=== PATIENT | male | born 1970 | race Caucasian/White ===

== ENCOUNTER 2017-07-01 22:41 | Emergency (ER) | payer SELFPAY ==
[~2017-07-01] VITALS: Ht 175.3 cm; Wt 76.0 kg
[~2017-07-01 22:41] MED LIST: ZITH250T PO; ZOFR4TAB3 SL
[2017-07-01 22:42] VITALS: BP 159/94; PULSE 130; RESP 18; TEMP 99.4; O2SAT 96
== END 2017-07-01 23:20 | disposition left against medical advice (07) ==
LOC: NED 22:41
DX: Z00.8 Encounter for other general examination (principal); Z53.21 Procedure and treatment not carried out due to patient leaving prior to being seen by health care provider
CPT/HCPCS: 99281